=== PATIENT | male | born 1965 | race African-American/Black ===

== ENCOUNTER 2019-02-06 02:04 | Emergency (ER) | payer OTHER ==
[~2019-02-06] VITALS: Ht 180.3 cm; Wt 113.4 kg
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
--- NOTE | 2019-02-06 03:30 | NUR ---
ED Nurse Note: all previous charting on paper chart, computer on downtime
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
--- NOTE | 2019-02-06 07:17 | NUR ---
ED Nurse Note: PT IN BED MORE AWAKE AND ALERT, CONTINUES TO BE COMBATIVE AND VERBALLY ABUSIVE, PT INCONTINENT OF URINE AND STOOL, ATTEMPTING TO FIND CLOTHING THAT WILL FIT PT, PT REMAINS SLIGHTLY LETHARGIC AND DROWSY, WILL CONTINUE TO MONITOR AND DISCHARGE WHEN SOBER AND APPROPRIATE. SHIFT REPORT GIVEN TO AM NURSE TO RESUME CARE AND D/C WHEN AWAKENED.
--- NOTE | 2019-02-06 07:20 | NUR ---
ED Nurse Note: Received patient in bed, patient is incontinent of urine and stool, not waking up easily, slightly lethargic and drowsy. patient is refusing to get CXR or have registration personnel talk to him.
--- NOTE | 2019-02-06 08:50 | NUR ---
ED Nurse Note: patient is eating breakfast
--- NOTE | 2019-02-06 09:00 | NUR ---
ED Nurse Note: ANOTHER BREAKFAST TRAY GIVEN TO THE PT. FINISHED THE MEAL 100%
--- NOTE | 2019-02-06 09:15 | NUR ---
ED Nurse Note: patient provided with another breakfast tray and more blankets as requested
--- NOTE | 2019-02-06 09:45 | NUR ---
ED Nurse Note: patient is verbally abusive to Dr. Ortega and nurses.
[2019-02-06 10:59] LABS: BASOPHILS % (AUTO) 1.2 % (0.0-2.0); EOSINOPHILS % (AUTO) 6.6 % (0.0-3.0); MEAN CORPUSCULAR VOLUME 84 FL (80-99); MONOCYTES % (AUTO) 4.4 % (1.0-10.0); NEUTROPHILS % (AUTO) 67.8 % (45.0-75.0); PLATELET COUNT 445 K/UL (150-450); RED BLOOD COUNT 4.15 M/UL (4.70-6.10); RED CELL DISTRIBUTION WIDTH 14.9 % (11.6-14.8); WHITE BLOOD COUNT 6.8 K/UL (4.8-10.8)
--- NOTE | 2019-02-06 10:59 | NUR ---
ED Nurse Note: patient went down for CT cxr taken bedside
[2019-02-06 11:10] LABS: ANION GAP 9 mmol/L (5-15); BLOOD UREA NITROGEN 15 mg/dL (7-18); CALCIUM 8.9 MG/DL (8.5-10.1); CARBON DIOXIDE 27 MMOL/L (21-32); CHLORIDE 109 MMOL/L (98-107); CREATININE 0.8 MG/DL (0.55-1.30); POTASSIUM 3.8 MMOL/L (3.5-5.1); SODIUM 144 MMOL/L (136-145)
[2019-02-06 11:13] LABS: ALANINE AMINOTRANSFERASE 16 U/L (12-78); ALBUMIN 2.6 G/DL (3.4-5.0); ALBUMIN/GLOBULIN RATIO 0.6 (1.0-2.7); ALKALINE PHOSPHATASE 82 U/L (46-116); ASPARTATE AMINO TRANSFERASE 13 U/L (15-37); BILIRUBIN,TOTAL 0.1 MG/DL (0.2-1.0)
--- NOTE | 2019-02-06 11:26 | NUR ---
ED Nurse Note: patient came back from CT
--- NOTE | 2019-02-06 12:29 | NUR ---
ED Nurse Note: report given to Debora RN at [facility], patient is going to room 509-B
[2019-02-06 12:40] VITALS: BP 137/85
--- NOTE | 2019-02-06 13:06 | NUR ---
ED Nurse Note: patient is a/o x4, providing water/blankets as patient requested. Ambulance is here to chicken picker the patient.
--- NOTE | 2019-02-06 13:25 | NUR ---
ED Nurse Note: ALVARO ok for the patient to be transferred.
[2019-02-06 13:26] VITALS: BP 114/66
--- NOTE | 2019-02-06 13:27 | NUR ---
ED Nurse Note: patient is being transferred to [facility] via ambulance with all his belongings. vss. report given to EMT. IV site on the LT AC 20G intact, patent.
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
--- NOTE | 2019-02-07 09:32 | Diagnostic Imaging Report ---
Indications: Low back pain Technique: Spiral acquisitions obtained through the lumbar spine. Multiplanar reconstructions were generated. No IV contrast utilized. Total dose length product 1365.53 mGycm. CTDIvol(s) 70.38 mGy. Dose reduction achieved using automated exposure control Comparison: none Findings: There is bilateral L5 spondylolysis. There is grade 1 to L5 on S1 spondylolisthesis, with L5 displaced approximately 7 mm anterior.. There is marked irregularity and destruction of the inferior L5 and superior S1 endplates there, particularly L5, with considerable volume loss of the L5 vertebral body. There is extensive sclerosis adjacent to the endplates.. There is considerable degenerative proliferative change of the surrounding disc The remaining bony alignment is normal. The remaining vertebral body heights are preserved. No acute fractures. No dislocations. There are degenerative changes of the bilateral sacroiliac joints. At T11-12, there is degenerative disc narrowing and vacuum formation. There is also considerable arthrosis of the bilateral facets. There is mild narrowing of the bilateral neural foramina. No significant disc bulge or protrusion. At T12-L1, there is mild degenerative disc narrowing and vacuum formation. There is minimal bilateral facet arthrosis. No significant disc bulge or protrusion or spinal stenosis. At L3-4, there is very mild degenerative disc narrowing and vacuum formation. No significant disc bulge or protrusion or spinal stenosis. At L4-5, there is mild circumferential annular bulge. There is bilateral facet arthrosis. No significant disc protrusion, spinal stenosis, or neural foraminal narrowing. At L5-S1, there may be neural foraminal compromise due to the alignment abnormality. The included extra spinal soft tissues demonstrate possible bladder wall thickening, which may be an artifact of under distention. Impression: Bilateral L5 spondylolysis, grade 1-2 L5 on S1 spondylolisthesis. Severe abnormality of the L5-S1 disc is probably secondary to degenerative change, particularly in view of the extensive surrounding sclerosis.. However, given the extent of the endplate irregularity and the degree of bone loss, the possibility of superimposed infection should also be considered. Consider contrast MRI for better characterization if clinically indicated Other degenerative changes, as described No acute bony trauma Findings discussed by phone with Dr. Thompson in the emergency room at the time of interpretation The CT scanner at [facility] is accredited by the [employer] and the scans are performed using protocols designed to limit radiation exposure to as low as reasonably achievable to attain images of sufficient resolution adequate for diagnostic evaluation.
== END 2019-02-06 13:30 | disposition short-term general hospital (02) ==
LOC: EDBD 02:04 → EMR 03:53
DX: F10.129 Alcohol abuse with intoxication, unspecified (principal); F19.10 Other psychoactive substance abuse, uncomplicated; E11.9 Type 2 diabetes mellitus without complications; I10 Essential (primary) hypertension; M54.9 Dorsalgia, unspecified; R41.82 Altered mental status, unspecified
CPT/HCPCS: 36415; 70450; 71045; 72131; 80053; 80307; 80329; 84484; 85025; 99284